=== PATIENT | female | born 1970 | race American Indian/Alaskan Native ===

== ENCOUNTER 2020-05-06 06:12 | Day surgery (SDC) | payer OTHER ==
[2020-05-04 10:23] LABS: Hemoglobin 13.1 gm/dl (10.1-14.3); Mean Corpuscular HGB Conc 34 % (30-34); Mean Corpuscular Volume 86 fl (79-97); Platelet Count 294 K/mm3 (140-440); Red Blood Count 4.41 M/mm3 (3.65-5.03); Red Cell Distribution Width 13.4 % (13.2-15.2)
[2020-05-06] MEDS ORDERED: BACTERIOSTATIC SODIUM CHLORIDE 0.9% 30 ML VIAL INFILTRATI ONE (06:27)
[2020-05-06] MEDS ORDERED: SILVER NITRATE APPLICATOR 1 EA TP ONE (06:54)
--- NOTE | 2020-05-06 07:05 | Anesthesia Consultation ---
Anesthesia Consult and Med Hx Date of service: 05/06/20 - Airway Anesthetic Teeth Evaluation: Good ROM Head & Neck: Adequate Mental/Hyoid Distance: Adequate Mallampati Class: Class II Intubation Access Assessment: Good - Pulmonary Exam CTA: Yes - Cardiac Exam Cardiac Exam: RRR - Pre-Operative Health Status ASA Pre-Surgery Classification: ASA2 Proposed Anesthetic Plan: General - Central Nervous System Hx Back Pain: Yes Hx Psychiatric Problems: No - Other Systems Hx Cancer: No Hx Obesity: Yes - Additional Comments Anesthesia Medical History Comments: H/o of PONV
--- NOTE | 2020-05-06 07:05 | Anesthesia Day of Surgery ---
Anesthesia Day of Surgery - Day of Surgery Patient Examined: Yes Patient H&P Reviewed: Yes Patient is NPO: Yes
[2020-05-06] MEDS ORDERED: FAMOTIDINE 20 MG/2 ML INJ IV ONE (07:08)
[2020-05-06] MEDS ORDERED: SCOPOLAMINE TRANSDERMAL PATCH 72 HR TD ONE ×2 (07:08→07:30)
[2020-05-06] MEDS ORDERED: LIDOCAINE MPF (2%) 20 MG/1 ML VIAL 5 ML ONE (07:18)
[2020-05-06] MEDS ORDERED: propofoL 200 MG/20 ML VIAL IV ONE (07:18)
[2020-05-06] MEDS ORDERED: HYDROmorphone 1 MG/1 ML INJ ONE (07:18)
[2020-05-06] MEDS ORDERED: ONDANSETRON 4 MG/2 ML INJ IV PRN (07:26)
[2020-05-06] MEDS ORDERED: HYDROmorphone 1 MG/1 ML INJ IV PRN ×2 (07:26)
--- NOTE | 2020-05-06 07:32 | Short Stay Summary ---
Short Stay Documentation Date of service: 05/06/20 Narrative H&P: 50-year-old -0-2-0 with a history of a retained IUD. An attempt was made to remove the IUD in the office however the string was not visualized. - History Principal diagnosis: Retained IUD Past Medical History: No medical history Past Surgical History: hernia repair Social history: single - Allergies and Medications Current Medications: Allergies shellfish derived Allergy (Verified 04/29/20 10:40) Anaphylaxis Sulfa (Sulfonamide Antibiotics) Allergy (Verified 04/29/20 10:40) Hives Home Medications Medication Instructions Recorded Confirmed Last Taken Type Fexofenadine HCl [Shy Allergy] 180 mg PO BID 04/29/20 04/29/20 Unknown History Fluticasone [Flonase] 1 spray NS QDAY 04/29/20 04/29/20 Unknown History Ibuprofen [Motrin] 800 mg PO Q8HR PRN 04/29/20 04/29/20 Unknown History guaiFENesin ER [Mucinex ER] 600 mg PO Q12H PRN 04/29/20 04/29/20 Unknown History Active Medications Hydromorphone HCl (Dilaudid) 0.25 mg IV Q10MIN PRN PRN Reason: Pain, Moderate (4-6) Hydromorphone HCl (Dilaudid) 0.5 mg IV Q10MIN PRN PRN Reason: Pain , Severe (7-10) Lactated Ringer's (Lactated Ringers) 1,000 mls @ 125 mls/hr IV DIRECT SANDRA Ondansetron HCl (Zofran) 4 mg IV ONCE PRN PRN Reason: Nausea And Vomiting Scopolamine (Transderm-Scop) 1 each TD PREOP NR - Physical exam General appearance: no acute distress Integumentary: no rash HEENT: Atraumatic Lungs: Clear to auscultation Breasts: deferred Heart: Regular rate Gastrointestinal: normal Female Genitourinary: deferred Rectal Exam: deferred Extremities: no ischemia Neurological: Normal gait - Brief post op/procedure progress note Date of procedure: 05/06/20 Pre-op diagnosis: Retained IUD Post-op diagnosis: same Procedure: Hysteroscopy Removal of retained IUD Anesthesia: GETA Surgeon: JOSEY ULLOA Estimated blood loss: none Pathology: list (ParaGard IUD) Specimen disposition: to lab Condition: stable - Hospital course Hospital course: The patient was admitted the day of surgery and underwent a hysteroscopy and removal of the IUD. Please see operative note for details of surgery. Her postoperative course was uneventful. - Disposition Condition at discharge: Good Disposition: [id number] TO HOME OR SELFCARE - Discharge Diagnoses (1) IUD (intrauterine device) in place Status: Acute (2) IUD mechanical complication Status: Acute Short Stay Discharge Plan Activity: no restrictions Diet: regular Additional Instructions: followup is not required followup as needed Prescriptions: Ibuprofen [Motrin] 800 mg PO Q8HR PRN #30 tablet PRN Reason: Pain , Severe (7-10)
[2020-05-06] MEDS ORDERED: MIDAZOLAM 2 MG/2 ML INJ ONE (07:37)
[2020-05-06] MEDS ORDERED: LACTATED RINGERS 1,000 ML IV SCH (08:00)
[2020-05-06] MEDS ORDERED: SCOPOLAMINE TRANSDERMAL PATCH 72 HR TD NR (08:00)
[2020-05-06] MEDS ORDERED: MIDAZOLAM 2 MG/2 ML INJ IV NR (08:00)
[2020-05-06] MEDS ORDERED: KETOROLAC 30 MG/1 ML INJ ONE (08:12)
[2020-05-06] MEDS ORDERED: ONDANSETRON 4 MG/2 ML INJ ONE (08:12)
--- NOTE | 2020-05-06 08:22 | Operative Report ---
Operative Report Operative Report: Date of procedure: May 06, 2020 Pre-operative diagnosis: Retained IUD Post-operative diagnosis: Same as above Procedure name(s): Hysteroscopy; removal of intrauterine device Surgeon: Kathy Ríos M.D. Sports Medicine Specialist: None Anesthesia: General endotracheal anesthesia Findings retained IUD in the uterine cavity Indication: 50-year-old -0-2-0 with a history of a retained IUD that was unable to be extracted in the office. Procedure The patient was taken to the operating room and given general tracheal anesthesia without complication. The patient was prepped and draped in a normal sterile fashion. A bivalve speculum was placed in the patient's vagina single- tooth tenaculums placed on the anterior lip of the cervix. The cervical os was dilated with graduated dilators. A uterine sound was inserted. The hysteroscope was then placed. Insufflation of the uterine cavity was performed with normal saline. Gen. survey of the uterine cavity revealed retained IUD in the lower uterine segment. A grasper was placed through the hysteroscope and the IUD was removed. There was no evidence of any intracavitary lesions. The hysteroscope was then removed. The remainder of the vaginal instruments were then removed atraumatically. The patient was then successfully extubated taken to the recovery room. All sponge laps and needle counts were correct 2. Specimen sent to pathology was ParaGard IUD.
--- NOTE | 2020-05-06 08:43 | Post Anesthesia Evaluation ---
- Post Anesthesia Evaluation Patient Participated: Yes Airway Patent: Yes Stable Respiratory Function: Yes Nausea/Vomiting: No Temp > 96.8F: Yes Pain Manageable: Yes Adequeate Hydration: Yes Anesthesia Complications: No Block Receding Appropriately: Not Applicable Patient on Ventilator: No
[2020-05-06] MEDS ORDERED: HYDROcodone/ACETAMINOPHEN 5-325 MG TAB PO NR (08:55)
[2020-05-06 09:32] VITALS: BP 115/78
== END 2020-05-06 10:15 | disposition home or self-care (01) ==
LOC: OR 06:12
PROVIDERS: ATTEND Obstetrics & Gynecology
DX: Z30.433 Encounter for removal and reinsertion of intrauterine contraceptive device (principal); Z20.828 Contact with and (suspected) exposure to other viral communicable diseases; T83.39XA Other mechanical complication of intrauterine contraceptive device, initial encounter; E66.9 Obesity, unspecified; Z88.2 Allergy status to sulfonamides; Z91.013 Allergy to seafood; Z79.899 Other long term (current) drug therapy; Z98.890 Other specified postprocedural states; Z68.34 Body mass index [BMI] 34.0-34.9, adult; Y83.8 Other surgical procedures as the cause of abnormal reaction of the patient, or of later complication, without mention of misadventure at the time of the procedure; Y92.89 Other specified places as the place of occurrence of the external cause
CPT/HCPCS: 36415; 58562; 84703; 85027; 88300; J1170; J1885; J2250; J2405; J2704; J7120; U0003; 88302

== ENCOUNTER 2021-11-26 09:06 | Emergency (ER) | payer SELFPAY ==
[2021-11-26 09:46] VITALS: BP 115/80
[2021-11-26 11:00] LABS: Bilirubin,Urine NEG (Negative); Blood,Urine NEG (Negative); Color,Urine Yellow (Yellow); Protein,Urine <15 mg/dL mg/dL (Negative); Urobilinogen,Urine < 2.0 mg/dL (<2.0); WBC,Urine < 1.0 /HPF (0.0-6.0)
[2021-11-26] MEDS ORDERED: KETOROLAC 10 MG TAB PO ONE (11:36)
[2021-11-26 12:08] LABS: Hematocrit 40.2 % (30.3-42.9); Hemoglobin 13.6 gm/dl (10.1-14.3); Mean Corpuscular HGB Conc 34 % (30-34); Mean Corpuscular Volume 86 fl (79-97); Platelet Count 264 K/mm3 (140-440); Red Cell Distribution Width 13.3 % (13.2-15.2)
[2021-11-26 12:15] LABS: Alanine Aminotransferase 14 units/L (7-56); Albumin 4.5 g/dL (3.9-5); Blood Urea Nitrogen 10 mg/dL (7-17); Hemolysis Index 1
[2021-11-26 12:16] LABS: BUN/Creatinine Ratio 14
--- NOTE | 2021-11-26 14:36 | Cat Scan Report ---
CT ABDOMEN AND PELVIS WITHOUT CONTRAST HISTORY: abdominal pain COMPARISON: None TECHNIQUE: Routine abdominal and pelvic CT exam performed without contrast. Lack of intravenous cont rast limits evaluation of the vascular and solid organs.. All CT scans at this location are performed using CT dose reduction for ALARA by means of automated exposure control. FINDINGS: CT ABDOMEN: Lung Bases: No significant abnormality. Liver: No significant abnormality. Biliary: No significant abnormality. Spleen: No significant abnormality. Unenlarged. Pancreas: No significant abnormality. Adrenals: No significant abnormality. Kidneys: No acute findings. Simple cyst in the lateral right kidney. Lymphatics: No lymphadenopathy. Vasculature: No significant abnormality. Bowel/Peritoneum: No significant abnormality. No free air. No free fluid. Normal appendix. CT PELVIC: : Uterus is enlarged and contains multiple masses consistent with uterine fibroids. Lymphatics: No lymphadenopathy. Osseous Structures: No aggressive appearing osseous lesions. Additional Findings: None IMPRESSION: 1. No acute findings. 2. Enlarged fibroid uterus. Signer Name: Ayo Lawler MD Signed: 11/26/2021 2:31 PM Workstation Name: [email or web address]
--- NOTE | 2021-11-26 14:43 | Emergency Department Report ---
ED Abdominal Pain HPI - General Chief Complaint: Abdominal Pain Stated Complaint: STOMACH PAIN/GROIN PAIN Time Seen by Provider: 11/26/21 11:18 Source: patient Mode of arrival: Ambulatory Limitations: No Limitations - History of Present Illness Initial Comments: 51-year-old black female with no past medical history presents to the emergency department for evaluation of several week history of increasing lower abdominal pain. She states that back in February 2021, she had an umbilical hernia repair and since then she has intermittent abdominal pain. She states that this time pain has been going on for couple weeks, getting increasingly worse, and rated 9 on a 10 point scale. She denies fever, vomiting, dysuria, and vaginal discharge. She states that she has had some intermittent nausea. MD Complaint: abdominal pain -: Gradual, week(s) Location: LLQ, RLQ Radiation: none Migration to: no migration Severity scale (0 -10): 5 Quality: aching Consistency: intermittent Worsens With: other (Palpation) Associated Symptoms: nausea. denies: vomiting, diarrhea, fever, chills, dysuria, hematemesis, hematochezia, melena, hematuria, anorexia, syncope - Related Data Home Medications Medication Instructions Recorded Confirmed Last Taken Fexofenadine HCl [Shy Allergy] 180 mg PO BID 04/29/20 05/06/20 05/05/20 17:00 Fluticasone [Flonase] 1 spray NS QDAY 04/29/20 05/06/20 05/05/20 09:00 Ibuprofen [Motrin] 800 mg PO Q8HR PRN 04/29/20 05/06/20 04/30/20 09:00 guaiFENesin ER [Mucinex ER] 600 mg PO Q12H PRN 04/29/20 05/06/20 04/30/20 09:00 Previous Rx's Medication Instructions Recorded Last Taken Type Ibuprofen [Motrin] 800 mg PO Q8HR PRN #30 tablet 05/06/20 Unknown Rx Allergies Allergy/AdvReac Type Severity Reaction Status Date / Time shellfish derived Allergy Anaphylaxis Verified 04/29/20 10:40 Sulfa (Sulfonamide Allergy Hives Verified 04/29/20 10:40 Antibiotics) ED Review of Systems ROS: Stated complaint: STOMACH PAIN/GROIN PAIN Other details as noted in HPI Comment: All other systems reviewed and negative Constitutional: denies: chills, fever ENT: denies: congestion Respiratory: denies: cough, shortness of breath, SOB with exertion, SOB at rest, stridor, wheezing Cardiovascular: denies: chest pain, palpitations, dyspnea on exertion, orthopnea, edema, syncope, paroxysmal nocturnal dyspnea Gastrointestinal: abdominal pain, nausea. denies: vomiting, diarrhea, hem atemesis, melena, hematochezia Genitourinary: denies: urgency, dysuria, frequency, hematuria, discharge Musculoskeletal: denies: back pain Skin: denies: rash, lesions Neurological: denies: headache, weakness, numbness, paresthesias, abnormal gait, vertigo ED Past Medical Hx - Social History Smoking Status: Never Smoker - Medications Home Medications: Home Medications Medication Instructions Recorded Confirmed Last Taken Type Fexofenadine HCl [Shy Allergy] 180 mg PO BID 04/29/20 05/06/20 05/05/20 17:00 History Fluticasone [Flonase] 1 spray NS QDAY 04/29/20 05/06/20 05/05/20 09:00 History Ibuprofen [Motrin] 800 mg PO Q8HR PRN 04/29/20 05/06/20 04/30/20 09:00 History guaiFENesin ER [Mucinex ER] 600 mg PO Q12H PRN 04/29/20 05/06/20 04/30/20 09:00 History Ibuprofen [Motrin] 800 mg PO Q8HR PRN #30 tablet 05/06/20 Unknown Rx ED Physical Exam - General Limitations: No Limitations General appearance: alert, in no apparent distress - Head Head exam: Present: atraumatic, normocephalic - Eye Eye exam: Present: normal appearance. Absent: conjunctival injection - Neck Neck exam: Present: normal inspection, full ROM. Absent: tenderness, lymphadenopathy - Respiratory Respiratory exam: Present: normal lung sounds bilaterally. Absent: respiratory distress, wheezes, rales, rhonchi, stridor, chest wall tenderness - Cardiovascular Cardiovascular Exam: Present: tachycardia, normal heart sounds - GI/Abdominal GI/Abdominal exam: Present: soft, tenderness (Bilateral lower quadrant), normal bowel sounds. Absent: distended, guarding, rebound, rigid - Extremities Exam Extremities exam: Present: normal inspection, normal capillary refill. Absent: tenderness, pedal edema, joint swelling, calf tenderness - Back Exam Back exam: Present: normal inspection. Absent: CVA tenderness (R), CVA tenderness (L) - Neurological Exam Neurological exam: Present: alert, oriented X3 - Psychiatric Psychiatric exam: Present: normal affect, normal mood - Skin Skin exam: Present: warm, dry, intact, normal color ED Course Vital Signs 11/26/21 11/26/21 09:28 16:28 Temperature 99.5 F Pulse Rate 101 H Respiratory 16 Rate Blood Pressure 115/80 [Left] O2 Sat by Pulse 99 Oximetry ED Medical Decision Making - Lab Data Result diagrams: 11/26/21 11:40 11/26/21 11:40 - Radiology Data Radiology results: report reviewed CT abdomen and pelvis: FINDINGS: CT ABDOMEN: Lung Bases: No significant abnormality. Liver: No significant abnormality. Biliary: No significant abnormality. Spleen: No significant abnormality. Unenlarged. Pancreas: No significant abnormality. Adrenals: No significant abnormality. Kidneys: No acute findings. Simple cyst in the lateral right kidney. Lymphatics: No lymphadenopathy. Vasculature: No significant abnormality. Bowel/Peritoneum: No significant abnormality. No free air. No free fluid. Normal appendix. CT PELVIC: : Uterus is enlarged and contains multiple masses consistent with uterine fibroids. Lymphatics: No lymphadenopathy. Osseous Structures: No aggressive appearing osseous lesions. Additional Findings: None IMPRESSION: 1. No acute findings. 2. Enlarged fibroid uterus. - Medical Decision Making 51-year-old black female with no past medical history presents to the emergency department for evaluation of several week history of increasing lower abdominal pain. She states that back in February 2021, she had an umbilical hernia repair and since then she has intermittent abdominal pain. She states that this time pain has been going on for couple weeks, getting increasingly worse, and rated 9 on a 10 point scale. She denies fever, vomiting, dysuria, and vaginal discharge. She states that she has had some intermittent nausea. No gross abnormalities noted on exam or labs. Urine negative for urinary tract infection. CT abdomen and pelvis without any acute abnormalities noted, but noted to have fibroid uterus. Patient is advised to use Tylenol and ibuprofen as needed for pain, and follow-up with primary care provider or ECONOMICS PROFESSOR for further evaluation and management. She verbalizes understanding of and agreement with plan of care. Critical care attestation.: If time is entered above; I have spent that time in minutes in the direct care of this critically ill patient, excluding procedure time. ED Disposition Clinical Impression: Fibroid uterus Qualifiers: Uterine leiomyoma location: unspecified location Qualified Code(s): D25.9 - Leiomyoma of uterus, unspecified Abdominal pain Qualifiers: Abdominal location: generalized Qualified Code(s): R10.84 - Generalized abdominal pain Disposition: 01 HOME / SELF CARE / HOMELESS Is pt being admited?: No Does the pt Need Aspirin: No Condition: Stable Instructions: Uterine Fibroids, [id number], Abdominal Pain, Adult, Easy-to-Re ad, Abdominal Pain (ED) Additional Instructions: Follow-up with primary care provider or ECONOMICS PROFESSOR for further evaluation and management. Return to the emergency department as needed. Referrals: ECTOR MUIR MD [Staff Physician] - 3-5 Days HERMILA COHEN MD [Primary Care Provider] - 3-5 Days Time of Disposition: 14:42
== END 2021-11-26 16:30 | disposition home or self-care (01) ==
LOC: ED 09:06
DX: D25.9 Leiomyoma of uterus, unspecified (principal); R10.84 Generalized abdominal pain; Z91.013 Allergy to seafood; Z88.2 Allergy status to sulfonamides
CPT/HCPCS: 36415; 74176; 80053; 81001; 83690; 85027; 99284